=== PATIENT | male | born 1960 | race Caucasian/White ===

== ENCOUNTER 2018-12-20 13:00 | Outpatient (CLI) | payer MEDICARE ==
--- NOTE | 2018-12-21 09:23 | CN ---
SERVICE DATE: 12/20/2018 INTRODUCTION: This 58-year-old male [facility] for evaluation of screening colonoscopy. The patient had one 11 years ago that apparently was normal. He does have occasional bleeding with bowel function, especially some blood on the tissue paper, not other significant bleeding however. His hemoglobin level is stable at 16. ALLERGIES: The patient has no known allergies. CURRENT MEDICATIONS: Ibuprofen, clonazepam, and trazodone. FAMILY HISTORY: Negative. PAST SURGICAL HISTORY: Includes a right total knee replacement, left hand surgery, sinus surgery, low back surgery, and knee arthroscopy. SOCIAL HISTORY: The patient does not smoke. He is on disability. 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 REVIEW OF SYSTEMS: Positive for some depression. PHYSICAL EXAMINATION: HEENT: Normal. Chest: Lungs are clear bilaterally. Heart: Normal sinus rhythm. Abdomen: Soft, nontender, nonobese. Extremities: No edema. Good range of motion. Neurologic: Intact. ASSESSMENT: Screening colonoscopy. PLAN: Risks, benefits, and expected outcomes of a colonoscopy were discussed with the patient. He is anxious to get this completed and will start his bowel prep this afternoon for his procedure tomorrow on 12/21/2018. MODL /[id number] cc: [facility]
== END 2018-12-20 13:38 | disposition home or self-care (01) ==
LOC: DL.GSCL 13:00
DX: Z12.11 Encounter for screening for malignant neoplasm of colon (principal)
CPT/HCPCS: 99203

== ENCOUNTER 2018-12-21 08:54 | Day surgery (SDC) | payer MEDICARE ==
[~2018-12-21 08:54] MED LIST: Dextrose 5%-0.45% NaCl 1,000 ML IV SCH; Midazolam 1 MG/ML 2 ML SDV ONE; fentaNYL 100 MCG/2 ML SDV ONE
[2018-12-21] MEDS ORDERED: Midazolam 1 MG/ML 2 ML SDV IV ONE ×7 (08:55→10:12)
[2018-12-21] MEDS ORDERED: fentaNYL 100 MCG/2 ML SDV IV ONE ×3 (08:55→10:13)
[2018-12-21] MEDS ORDERED: fentaNYL 100 MCG/2 ML SDV ONE (10:03)
--- NOTE | 2018-12-21 14:41 | OR ---
DATE: 12/21/2018 PREOPERATIVE DIAGNOSES: Screening colonoscopy and occasional rectal bleeding with bowel function. POSTOPERATIVE DIAGNOSES: Screening colonoscopy and occasional rectal bleeding with bowel function. PROCEDURE: Total colonoscopy. ANESTHESIA: Conscious sedation with IV Versed and fentanyl. SPECIMEN: None. OPERATIVE FINDINGS: Normal colonoscopy. RECOMMENDATION: Followup screening colonoscopy in 10 years or sooner for other symptoms. INDICATION FOR PROCEDURE: This 58-year-old male had a colonoscopy about 11 years ago. He does have some rectal bleeding nearly daily with blood on the toilet tissue after function. PROCEDURE IN DETAIL: After adequate preparation, a colonoscope was inserted into the rectum. This was easily passed all the way to the cecum. Confirmation of the cecum was made by visualization of the ileocecal valve and palpation in the right lower quadrant. The bowel prep was good. On withdrawal of the scope, no abnormalities were noted. He has no masses, polyps, bleeding sites, colitis, or diverticula. Anal examination did not show any internal hemorrhoids. He does have a few small external hemorrhoids. These most likely would be some of the cause of his bleeding. He really does not have any other explanation that would be troublesome for bleeding. Air was suctioned from the colon and the scope removed. [facility] /[id number]
== END 2018-12-21 11:25 | disposition home or self-care (01) ==
LOC: DL.ENDO 08:54
PROVIDERS: ATTEND Surgery
DX: K62.5 Hemorrhage of anus and rectum (principal); K64.4 Residual hemorrhoidal skin tags; F32.9 Major depressive disorder, single episode, unspecified; Z79.899 Other long term (current) drug therapy
CPT/HCPCS: 45378; J2250; J3010; J7042; G0121